=== PATIENT | female | born 1960 | race Caucasian/White ===

== ENCOUNTER → 2020-04-04 | Outpatient (CLI) | payer BC ==
[~2020-04-04] MED LIST: ASPI81TA26 PO; CHLO50TA PO; HYDR12.55 PO; LISI-538 PO; METF500T13 PO; METO1TAB33 PO; METO37.5 PO; NIAC1TAB5 PO; OMEP40CA97 PO; PARO20TA3 PO; SIMV20TA22 PO; TELM1TAB35 PO
[2020-04-04 09:51] LABS: HEMOGLOBIN 12.4 g/dl (12.0-15.5); MEAN CORPUSCULAR HGB CONC 31.8 g/dl (32.0-36.5); MEAN CORPUSCULAR VOLUME 94.2 fl (80.0-96.0); PLATELET COUNT, AUTOMATED 286 10^3/uL (150-450); RED BLOOD COUNT 4.14 10^6/uL (4.00-5.40); WHITE BLOOD COUNT 5.7 10^3/uL (4.0-10.0)
[2020-04-04 10:01] LABS: INR 0.98; PROTHROMBIN TIME 13.2 SECONDS (12.5-14.3)
[2020-04-04 10:12] LABS: ERYTHROCYTE SEDIMENTATION RATE 37 mm/hr (0-30)
[2020-04-04 10:14] LABS: ALBUMIN 3.7 GM/DL (3.2-5.2); ALT/SGPT 32 U/L (12-78); BILIRUBIN,TOTAL 0.3 MG/DL (0.2-1.0); BLOOD UREA NITROGEN 28 MG/DL (7-18); CALCIUM LEVEL 9.2 MG/DL (8.5-10.1); CARBON DIOXIDE LEVEL 27 MEQ/L (21-32); CHLORIDE LEVEL 101 MEQ/L (98-107); GLOMERULAR FILTRATION RATE > 60.0 (>51); GLUCOSE, FASTING 146 MG/DL (70-100); POTASSIUM SERUM 4.6 MEQ/L (3.5-5.1); SODIUM LEVEL 138 MEQ/L (136-145); TOTAL PROTEIN 7.3 GM/DL (6.4-8.2)
--- NOTE | 2020-04-04 18:12 | ECGEPIP ---
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
== END ==
LOC: M LAB 08:47
PROVIDERS: ATTEND Orthopaedic Surgery
DX: M17.11 Unilateral primary osteoarthritis, right knee (principal)

== ENCOUNTER → 2020-04-04 | Outpatient (CLI) | payer BC ==
[~2020-04-04] MED LIST changes: -METO1TAB33 PO
== END ==
LOC: M LABSMTC 10:38
PROVIDERS: ATTEND Anesthesiology
DX: Z01.812 Encounter for preprocedural laboratory examination (principal); Z20.828 Contact with and (suspected) exposure to other viral communicable diseases

== ENCOUNTER 2020-04-09 11:21 | Inpatient (IN) | payer BC ==
--- NOTE | 2020-04-04 11:14 | HPE ---
HISTORY AND PHYSICAL DATE OF ADMISSION: 04/09/2020 ATTENDING PHYSICIAN: JOSEPH PIÑA MD CHIEF COMPLAINT: Right knee pain and stiffness. HISTORY: The patient is a 59-year-old female with progressively worsening right knee pain and stiffness. She has failed to improve with conservative measures. She continues to have symptoms with weightbearing activities and activities of daily living. She has consented for an elective right total knee arthroplasty with Dr. Piña for her continued symptoms. Medical optimization pending with her primary healthcare management, Dr. Yarbrough. CURRENT MEDICATIONS: 1. Metoprolol 50 mg daily. 2. Metformin 500 mg daily. 3. Chlorthalidone 25 mg daily. 4. Niacin 1000 mg twice daily. 5. Colesevelam 625 mg twice daily. 6. Zocor 40 mg daily. 7. Paxil 20 mg daily. 8. Metoprolol 50 mg twice daily. 9. Telmisartan 20 mg daily. 10.Lisinopril 20 mg daily. 11.Telmisartan 40 mg daily. 12.Omeprazole 40 mg daily. 13.Albuterol inhaler. ALLERGIES: There are no known drug allergies. CHRONIC MEDICAL CONDITIONS: 1. Diabetes. 2. Hypertension. 3. Hyperlipidemia. 4. Anxiety. 5. Depression. 6. Gastroesophageal reflux disease. 7. Asthma. PAST SURGICAL HISTORY: None. SOCIAL HISTORY: Patient has never used tobacco products and rarely uses alcohol. REVIEW OF SYSTEMS: The patient denies fevers, chills, nausea, vomiting or diarrhea. Denies chest pain, shortness of breath, lightheadedness, dizziness or headaches. Denies any recent upper respiratory or urinary tract infection symptoms. She does continue to have right knee pain with weightbearing activities and activities of daily living. PHYSICAL EXAMINATION: GENERAL: Well-nourished, well-developed female in no apparent distress. She is alert, oriented and cooperative. Mood and affect are appropriate. VITAL SIGNS: Height is 66 inches, weight is 274 pounds, temperature is 97.3, blood pressure 180/90. Heart rate 78, respirations 20. NECK: Supple without lymphadenopathy. HEART: Regular rate and rhythm. LUNGS: Clear to auscultation bilaterally. ABDOMEN: Soft and nontender. Bowel sounds are present. MUSCULOSKELETAL: Right knee exhibits no gross abnormalities. There is tenderness to palpation along the medial and lateral and joint lines. Patient can extend the knee to about 2 degrees and flex to 95 degrees. Right lower extremity strength is 5/5. The calf is soft and nontender without evidence of DVT. She is neurovascularly intact distally. IMAGING: Right knee x-rays are notable for endstage degenerative changes. IMPRESSION: Right knee osteoarthritis. PLAN: Patient has consented for an elective right total knee arthroplasty with Dr. Piña for her continued symptoms. Medical optimization pending with Dr. Yarbrough. The patient is scheduled for her COVID test tomorrow. She will be NPO after midnight the night prior to surgery and was instructed to take a medication with a small sip of water by her primary healthcare management. She will follow her primary healthcare management's recommendations on how to take daily medications to include any anticoagulants if applicable. The patient will use her Hibiclens and Bactroban as directed.
[~2020-04-09] VITALS: Ht 170.2 cm; Wt 124.7 kg
[~2020-04-09 11:21] MED LIST changes: +BUPIVACAINE HCL 0.25% 10ML VIAL As Ordered ONE; +BUPIVACAINE LIPOSOME/PF 1.3% 20ML VIAL (13.3MG/ML)(EXPAREL)(C9290 PER1MG) As Ordered ONE; +EPINEPHrine INJ 1 MG/ML 1ML AMP As Ordered ONE; +LIDOCAINE 1% MDV 20ML VIAL SQ PRN; +LR 1,000 ML IV ONE; +TRANEXAMIC ACID 100 MG/ML 10ML VIAL As Ordered ONE; +ceFAZolin 1GM VIAL (J0690 PER 500MG) As Ordered ONE; +ceFAZolin SOD 1 GM in D5W MINI-BAG PLUS 50 ML IV ONE; +ceFAZolin SOD 2 GM in IV 1 EA IV ONE
[2020-04-09] MEDS ORDERED: METO1TAB33 PO (12:07)
[2020-04-09] MEDS ORDERED: fentaNYL 100 MCG/2 ML INJECTION (J3010) As Ordered ONE ×2 (12:45→14:00)
[2020-04-09] MEDS ORDERED: MIDAZOLAM INJ 2MG/2ML VIAL (J2250 PER 1MG) As Ordered ONE ×2 (12:45→14:00)
[2020-04-09] MEDS ORDERED: ROPIvacaine 0.5% 30ML INJECTION (J2795 PER 1MG) As Ordered ONE (12:59)
[2020-04-09] MEDS ORDERED: dexameTHASONE 10MG/1ML VIAL PRES.FREE (J1100 PER 1MG) As Ordered ONE (12:59)
[2020-04-09] MEDS ORDERED: dexameTHASONE 10MG/1ML VIAL PRES.FREE (J1100 PER 1MG) XX ONE (13:30)
[2020-04-09] MEDS ORDERED: ROPIvacaine 0.5% 30ML INJECTION (J2795 PER 1MG) XX ONE (13:30)
[2020-04-09] MEDS ORDERED: LIDOCAINE 1% MDV 20ML VIAL XX ONE (13:30)
--- NOTE | 2020-04-09 13:30 | IPN ---
PROGRESS NOTE DATE: 04/09/2020 SUBJECTIVE: The patient was seen and examined. She wished to go ahead with a right knee arthroplasty. She understands the nature of this, the risks of bleeding, infection, damage to nerves or vessels, persistent pain, wear, loosening, blood clots, medical problems, and among others. She understands she is at increased risk of complications due to her morbid obesity but she has been unable to lose any further weight.
[2020-04-09] MEDS: fentaNYL 100 MCG/2 ML INJECTION (J3010) IV PRN ×2 (13:37→13:45)
[2020-04-09] MEDS: MIDAZOLAM INJ 2MG/2ML VIAL (J2250 PER 1MG) IV PRN ×2 (13:37→13:45)
[2020-04-09] MEDS ORDERED: propofoL 500 MG/50 ML VIAL As Ordered ONE (14:00)
[2020-04-09] MEDS ORDERED: PHENYLephrine HCL 500 MCG/5 ML (100MCG/ML) SYRINGE (J2370) As Ordered ONE (14:29)
[2020-04-09] MEDS ORDERED: propofoL 200 MG/20 ML VIAL As Ordered ONE (14:37)
[2020-04-09] MEDS ORDERED: fentaNYL 100 MCG/2 ML INJECTION (J3010) IV PRN (15:45)
[2020-04-09] MEDS ORDERED: LR 1,000 ML IV SCH (15:45)
[2020-04-09] MEDS ORDERED: ONDANSETRON 4MG/2ML VIAL IV PRN ×2 (15:45)
[2020-04-09] MEDS ORDERED: MORPHINE 4 MG/ML 1ML VIAL/SYRINGE (J2270) IV PRN (15:45)
[2020-04-09] MEDS ORDERED: oxyCODONE 5MG TAB PO PRN (15:45)
[2020-04-09] MEDS ORDERED: MORPHINE 2 MG/ML 1ML VIAL (J2270) IV PRN (15:45)
[2020-04-09] MEDS ORDERED: ACETAMINOPHEN TAB 650MG DOSE (2X325MG) PO PRN (15:45)
[2020-04-09] MEDS ORDERED: PERCOCET 5MG/325MG TAB PO PRN (15:45)
--- NOTE | 2020-04-09 16:31 | REP ---
INDICATION: POST TOTAL KNEE COMPARISON: None. TECHNIQUE: AP and cross-table lateral views. FINDINGS: Normal appearance and positioning to the femoral and tibial components. Overlying postsurgical changes and skin jaylin noted. IMPRESSION: Status post right knee replacement. Satisfactory positioning. <Electronically signed by Josh Plasencia > 04/09/20 [id number]
--- NOTE | 2020-04-09 16:39 | RO ---
OPERATIVE NOTE DATE OF OPERATION: 04/09/2020 PREOPERATIVE DIAGNOSIS: Right knee osteoarthritis. POSTOPERATIVE DIAGNOSIS: Right knee osteoarthritis. PROCEDURE: Right total knee arthroplasty using an Attune rotating platform size 6, posterior stabilized femur, size 5 tibial tray 6 polyethylene, 35 patellar button. SURGEON: Tre Piña MD K 9 HANDLER/ DEPUTY: CAIN Holden ANESTHESIA: Spinal. EBL: 50. COMPLICATIONS: None. OPERATIVE PROCEDURE: The patient was taken to the operating room, placed in the supine position. After spinal anesthesia was induced, the right lower extremity was prepped and draped in the usual sterile fashion. A time-out was performed, tourniquet was inflated and a longitudinal incision was made over the anterior aspect of the knee. Sharp dissection was carried down through subcutaneous tissue until the deep layer was encountered. A medial parapatellar arthrotomy was performed, everted the patella with some difficulty due to large osteophytes. There was also a large loose body in the pouch that was removed. Once I removed the osteophytes, I was able to michele the patella, flex the knee up, removed osteophytes from around the femur, used the intermedullary guide on the femoral side set at 5 degrees of valgus and a 9 mm cut. This was pinned in place and a distal femoral cut was made protecting soft tissues. I sized the femur to a 6 with the sizing guide and the drill holes were placed in the end of the femur with the external rotation dialed in. I then placed the 6 cutting block on and made the remaining four cuts, protecting soft tissues. We then directed our attention to the tibia. Tibial alignment guide was placed and it was set at 4 mm off the low side which was medial and the proximal tibia cut was made removing the excess bone. It was evident at this point that the PCL was deficient so I went ahead with a box cut on the end of the femur for a posterior stabilized prosthesis. This excess bone was removed along with the PCL with a cautery. The tibial surface was then prepared. A size 5 tray fit nicely. This was drilled and broached and the trial components were placed. I had used a diesel dinkey engineer to remove soft tissue and osteophytes from either side of the knee and I had used spacer blocks to determine the appropriate thickness of polyethylene. The overall alignment and tissue balance was excellent. Once the trial components were placed, they fit very nicely and a size 6 polyethylene was appropriate, had excellent stability in flexion and extension, varus/valgus stress. I then free-hand cut the patella, removing about 7 or 8 mm of bone and then sized it to be a 35 button which was drilled, and the button racked quite nicely. I then drilled the holes in the end of the femur and the carpenter assistant installer prepared the bone cement in the modern technique. I then removed the trial component. I injected the Exparel in the deep tissues withdrawing on the syringe first and irrigating the surfaces well. The cement was prepared. I then cemented in the components, removed excess bone cement. I cemented in the patella, held it in place with a clamp. The TXA was placed in the deep wound. I then repaired the deep layer with interrupted #1 Vicryl suture and a running STRATAFIX and then removed the patellar clamp once the cement had hardened. I then closed the remaining deep layer with a running STRATAFIX irrigating first. I then closed the subcu with 2-0 Vicryl and the skin with jaylin. A sterile dressing was applied. The tourniquet was deflated when the cement was hard and she was taken to the recovery room in stable condition. There were no known complications. The plan will be routine postop. The carpenter assistant installer was instrumental in holding retractors and assisting in wound closure and assisting in mixing the bone cement. This was coded as an unusually difficult procedure due to the patient's BMI of 44 which was significantly more challenging in positioning the leg and soft tissue balance and making the cuts. This added time and significant difficulty to the procedure, and she is aware that it increased the complication rate. [place]
[2020-04-09] MEDS ORDERED: GLUCOSE 4GM CHEW TABLET PO PRN (17:15)
[2020-04-09] MEDS ORDERED: DEXTROSE 50% 50 ML SYRINGE IV PRN (17:15)
[2020-04-09] MEDS ORDERED: GLUCAGON INJ 1MG VIAL SC PRN (17:15)
--- NOTE | 2020-04-09 17:18 | HPEPDOC ---
General Date of Admission Apr 09, 2020 at 11:37 Date of Service: Apr 09, 2020 Chief Complaint The patient is a 59-year-old female admitted with a reason for visit of Osteoarthritis Right Knee. Source: Patient History of Present Illness Consultation Report Consultation requested by Orthopedics. Consultation for the management of Medical Comorbidities. HPI: 59 year old female with PMH of HTn, DM, HLD, OA, GERD has been admitted to the orthopedic service for elective right total knee replacement for advanced OA not management by medications. She had an uneventful surgery. She is seen post op and is complaining of right knee pain about 4/10 in intensity sharp stabbing pain with no radiation. Says the numbness is wearing off and the pain has started. Home Medications Scheduled Chlorthalidone (Chlorthalidone) 50 Mg Tablet, 50 MG PO DAILY, (Reported) Lisinopril (Lisinopril) 20 Mg Tablet, 20 MG PO DAILY, (Reported) Metformin HCl (Metformin HCl) 500 Mg Tab, 500 MG PO BID, (Reported) Metoprolol Succinate (Metoprolol Succinate) 100 Mg Tab.er.24h, 50 MG PO BID, (Reported) Niacin (Niacin ER) 1,000 Mg Tab, 1,000 MG PO QHS, (Reported) Omeprazole (Omeprazole) 40 Mg Capsule.dr, 40 MG PO DAILY, (Reported) Paroxetine HCl (Paroxetine HCl) 20 Mg Tab, 20 MG PO DAILY, (Reported) Simvastatin (Simvastatin) 20 Mg Tab, 40 MG PO DAILY, (Reported) Telmisartan (Telmisartan) 40 Mg Tab, 60 MG PO DAILY, (Reported) Allergies Coded Allergies: No Known Allergies (Unverified , 04/09/20) Past Medical History Medical History Diabetes. Hypertension. Hyperlipidemia. Anxiety. Depression. Gastroesophageal reflux disease. Bronchitis Morbid obesity OA Surgical History C- section x 1 Family History Significant Family History: Cancer (Father from throat cancer), Diabetes (mother), Hypertension (mother) Social History * Smoker: non-smoker Alcohol: rarely Drugs: denies A-FIB/CHADSVASC A-FIB History Current/History of A-Fib/PAF?: No Review of Systems Constitutional: Denies: Chills, Fever, Night Sweats Eyes: Denies: Pain, Vision change ENT: Denies: Head Aches, Ear Pain, Dysphagia Skin: Denies: Rash, Lesions, Breakdown Pulmonary: Denies: Dyspnea, Cough Cardiovascular: Denies: Chest Pain, Palpitations, Orthopnea, Paroxysmal Noc. Dyspnea, Lt Headedness Gastrointestinal: Denies: Nausea, Vomiting, Abdominal Pain, Diarrhea Genitourinary: Denies: Dysuria, Frequency, Incontinence, Retention Musculoskeletal: Reports: Joint Pain Neurological: Denies: Weakness, Numbness, Change in speech, Confusion Physical Examination General Exam: Positive: Alert, Cooperative, No Acute Distress Eye Exam: Positive: PERRLA, Conjunctiva & lids normal, EOMI; Negative: Sclera icteric ENT Exam: Positive: Atraumatic, Mucous membr. moist/pink, Pharynx Normal Neck Exam: Positive: Supple; Negative: JVD, thyromegaly Chest Exam: Positive: Clear to auscultation, Normal air movement Heart Exam: Positive: Rate Normal, Regular Rhythm, Normal S1, Normal S2; Negative: Murmurs, Rubs Abdomen Exam: Positive: Normal bowel sounds, Soft; Negative: Tenderness, Hepatospenomegaly Extremity Exam: Positive: Normal pulses; Negative: Clubbing, Cyanosis, Edema Vital Signs Vital Signs Date Time Temp Pulse Resp B/P (MAP) Pulse Ox O2 Delivery O2 Flow Rate FiO2 04/09/20 17:05 70 16 132/67 (88) 99 Room Air 04/09/20 17:00 97.5 04/09/20 13:48 3 Laboratory Data Labs 24H Laboratory Tests 2 04/09/20 12:31: Bedside Glucose (Misc Panel) 130H Assessment/Plan 59 year old female with PMH of HTn, DM, HLD, OA, GERD has been admitted to [facility] orthopedic service for elective right total knee replacement for advanced OA not management by medications. Hospitalist is consulted for medical management. Right total knee replacement pain control and dvt prophylaxis as per orthopedics. Hypertension continue metoprolol will hold Lisinpril and telmeasrtan will give amlodipine if needed DM Hold metformin Lispro as per sliding scale HLD niacin and simvastatin Anxiety/depression paroxetine GERD omeprazole Asthma Plan / VTE VTE Prophylaxis Ordered?: Yes TIM DUNN MD Apr 09, 2020 17:18
[2020-04-09 18:00] VITALS: BP 160/88
[2020-04-09 18:30] VITALS: BP 134/73
[2020-04-09] MEDS: LR 1,000 ML IV SCH (19:06)
[2020-04-09] MEDS: HumaLOG INSULIN (NovoLOG) PER UNIT SC SCH (19:08)
[2020-04-09 19:30] VITALS: BP 139/73
[2020-04-09] MEDS: amLODIPine 5 MG TAB PO SCH (20:01)
[2020-04-09 20:30] VITALS: BP 124/61
[2020-04-09] MEDS ORDERED: NIACIN SR (NIASPAN) 500 MG TAB PO SCH (21:00)
[2020-04-09] MEDS ORDERED: SIMVASTATIN 20 MG TAB PO SCH (21:00)
[2020-04-09] MEDS ORDERED: HumaLOG INSULIN (NovoLOG) PER UNIT SC SCH (21:00)
[2020-04-09 21:30] VITALS: BP 136/71
[2020-04-09] MEDS: ceFAZolin SOD 2 GM in IV 1 EA IV SCH (22:20)
[2020-04-09] MEDS: ceFAZolin SOD 1 GM in D5W MINI-BAG PLUS 50 ML IV SCH (22:20)
[2020-04-10 02:00] VITALS: BP 126/81
[2020-04-10 06:00] VITALS: BP 138/76
[2020-04-10] MEDS ORDERED: PERCOCET 5MG/325MG TAB PO PRN (06:00)
[2020-04-10] MEDS: LR 1,000 ML IV SCH (06:03)
[2020-04-10] MEDS: ceFAZolin SOD 1 GM in D5W MINI-BAG PLUS 50 ML IV SCH (06:20)
[2020-04-10] MEDS: ceFAZolin SOD 2 GM in IV 1 EA IV SCH (06:20)
[2020-04-10] MEDS ORDERED: XARE10TA PO (06:41)
[2020-04-10] MEDS ORDERED: PERC5TAB12 PO (06:41)
[2020-04-10 07:41] VITALS: BP 128/74
[2020-04-10] MEDS: amLODIPine 5 MG TAB PO SCH (07:41)
[2020-04-10] MEDS: HumaLOG INSULIN (NovoLOG) PER UNIT SC SCH (07:41)
--- NOTE | 2020-04-10 08:03 | IPNPDOC ---
Date Seen The patient was seen on 04/10/20. Progress Note SUBJECTIVE: just received percocet this morning. no pain while resting and not moving her right knee. able to sleep ok last night. no c/o sob, cough, fever, or chills. received miralax for bowel regimen. no other c/o. using her incentive spirometry . OBJECTIVE PHYSICAL EXAMINATION: VITAL SIGNS: Please see below. GENERAL: cooperative. pleasant no distress HEENT: moist mm no jvd no carotid bruits CARDIOVASCULAR: S1S2 RRR RESPIRATORY: AEBE CTAB ABDOMINAL: obese soft nt nd +BS x 4 quadrants EXTREMITIES: right knee postop . warm dry well perfused no edema. limited ROM right Leg postop . LABORATORY DATA, IMAGING STUDIES, MICROBIOLOGY: Please see below. 59 year old female with PMH of HTn, DM, HLD, OA, GERD has been admitted to [facility] orthopedic service for elective right total knee replacement for advanced OA not management by medications. Hospitalist is consulted for medical management. Right total knee replacement ARU screen postop mgt including pain meds, DVT prophylaxis, surgical wound mgt per ortho activity as tolerated Hypertension controlled on metoprolol no c/o h/a, chest pain, changees in vision DM on consistent carbs diet fingersticks qac hs with coverage Lispro as per sliding scale HLD on niacin and simvastatin Anxiety/depression paroxetine GERD omeprazole Asthma no nocturnal symptoms disposition: await PT/OT recommendations, ARU screen possible dc today or in AM if tolerates ambulation. VS, I&O, 24H, Fishbone Vital Signs/I&O Vital Signs Date Time Temp Pulse Resp B/P (MAP) Pulse Ox O2 Delivery O2 Flow Rate FiO2 04/10/20 06:49 18 Room Air 04/10/20 06:00 98.0 86 138/76 (96) 99 04/09/20 13:48 3 I&O- Last 24 Hours up to 6 AM 04/10/20 06:00 Intake Total 3075 ml Output Total 650 ml Balance 2425 ml Laboratory Data 24H LABS Laboratory Tests 2 04/09/20 12:31: Bedside Glucose (Misc Panel) 130H 04/09/20 18:54: Bedside Glucose (Misc Panel) 150H 04/09/20 20:00: Bedside Glucose (Misc Panel) 208H 04/10/20 05:41: Bedside Glucose (Misc Panel) 158H YANETH YARBROUGH MD Apr 10, 2020 07:24
[2020-04-10] MEDS ORDERED: MIRALAX *UNIT DOSE* 17GM PACKET PO SCH (09:00)
[2020-04-10] MEDS ORDERED: OMEPRAZOLE 20 MG CAP PO SCH (09:00)
[2020-04-10] MEDS ORDERED: PARoxetine 20MG TABLET PO SCH (09:00)
[2020-04-10] MEDS ORDERED: MOM 30ML SUSPENSION UDC PO SCH (09:00)
[2020-04-10 10:00] VITALS: BP 156/79
--- NOTE | 2020-04-10 17:05 | DS.PDOC ---
Discharge Summary General Date of Admission Apr 09, 2020 at 11:37 Date of Discharge 04/10/20 Discharge Summary DISCHARGE DIAGNOSES: Right Knee OA s/p right total knee replacement HTN DM2 Hyperlipidemia OA GERD DISCHARGE MEDICATIONS: SEE BELOW DISCHARGE INSTRUCTIONS: ORTHO FOR POSTOPERATIVE MANAGEMENT INCLUDING ACTIVITY, POSTOP DRESSING CHANGES, DVT PROPHYLAXIS, BOWEL REGIMEN, AND PAIN CONTROL HISTORY OF PRESENTING ILLNESS: 59 year old female with PMH of HTn, DM, HLD, OA, GERD has been admitted to [facility] orthopedic service for elective right total knee replacement for advanced OA not management by medications. Hospitalist is consulted for medical management. HOSPITAL COURSE: Right total knee replacement ARU screen postop mgt including pain meds, DVT prophylaxis, surgical wound mgt per ortho activity as tolerated Hypertension controlled on metoprolol no c/o h/a, chest pain, changees in vision DM on consistent carbs diet fingersticks qac hs with coverage Lispro as per sliding scale HLD on niacin and simvastatin Anxiety/depression paroxetine GERD omeprazole Asthma no nocturnal symptoms DISCHARGE PHYSICAL EXAMINATION: VITAL SIGNS: Please see below. GENERAL: cooperative. pleasant no distress HEENT: moist mm no jvd no carotid bruits CARDIOVASCULAR: S1S2 RRR RESPIRATORY: AEBE CTAB ABDOMINAL: obese soft nt nd +BS x 4 quadrants EXTREMITIES: right knee postop . warm dry well perfused no edema. limited ROM right Leg postop . LABORATORY DATA, IMAGING STUDIES, MICROBIOLOGY: PLS SEE BELOW KNEE XRAY: INDICATION: POST TOTAL KNEE COMPARISON: None. TECHNIQUE: AP and cross-table lateral views. FINDINGS: Normal appearance and positioning to the femoral and tibial components. Ov erlying postsurgical changes and skin jaylin noted. IMPRESSION: Status post right knee replacement. Satisfactory positioning. <Electronically signed by Josh Plasencia > 04/09/20 6043 TIME SPENT ON DISCHARGE: 30 MINUTES Vital Signs/I&Os Vital Signs Date Time Temp Pulse Resp B/P (MAP) Pulse Ox O2 Delivery O2 Flow Rate FiO2 04/10/20 10:00 98.6 91 18 156/79 (104) 98 Room Air 04/09/20 13:48 3 I&O- Last 24 Hours up to 6 AM 04/10/20 06:00 Intake Total 3075 ml Output Total 650 ml Balance 2425 ml Laboratory Data Labs 24H Laboratory Tests 2 04/09/20 18:54: Bedside Glucose (Misc Panel) 150H 04/09/20 20:00: Bedside Glucose (Misc Panel) 208H 04/10/20 05:41: Bedside Glucose (Misc Panel) 158H FSBS Laboratory Tests Test 04/09/20 18:54 04/09/20 20:00 04/10/20 05:41 Range/Units Bedside Glucose (Misc Panel) 150 208 158 70-105 MG/DL Discharge Medications Scheduled Chlorthalidone (Chlorthalidone) 50 Mg Tablet, 50 MG PO DAILY, (Reported) Lisinopril (Lisinopril) 20 Mg Tablet, 20 MG PO DAILY, (Reported) Metformin HCl (Metformin HCl) 500 Mg Tab, 500 MG PO BID, (Reported) Metoprolol Succinate (Metoprolol Succinate) 100 Mg Tab.er.24h, 50 MG PO BID, (Reported) Niacin (Niacin ER) 1,000 Mg Tab, 1,000 MG PO QHS, (Reported) Omeprazole (Omeprazole) 40 Mg Capsule.dr, 40 MG PO DAILY, (Reported) Paroxetine HCl (Paroxetine HCl) 20 Mg Tab, 20 MG PO DAILY, (Reported) Rivaroxaban (Xarelto) 10 Mg Tablet, 10 MG PO DAILY Simvastatin (Simvastatin) 20 Mg Tab, 40 MG PO DAILY, (Reported) Telmisartan (Telmisartan) 40 Mg Tab, 60 MG PO DAILY, (Reported) Scheduled PRN Oxycodone HCl/Acetaminophen (Percocet 5-325 mg Tablet) 1 Each Tablet, 1-2 TAB PO Q4H PRN for PAIN Allergies Coded Allergies: No Known Allergies (Unverified , 04/09/20) YANETH YARBROUGH MD Apr 10, 2020 17:04
[2020-04-10] MEDS ORDERED: RIVAROXABAN 10 MG TAB (XARELTO) PO SCH (18:00)
== END 2020-04-10 12:45 | disposition home or self-care (01) | DRG 302 ==
LOC: M OR 11:37 → M MS5PR 17:45
PROVIDERS: ADMIT Orthopaedic Surgery; ATTEND Orthopaedic Surgery
PROC: 0SRC0J9 Replacement of Right Knee Joint with Synthetic Substitute, Cemented, Open Approach (ICD-10-PCS; principal; 2020-04-09 16:00)
DX: M17.11 Unilateral primary osteoarthritis, right knee (principal); E66.01 Morbid (severe) obesity due to excess calories; I10 Essential (primary) hypertension; E11.9 Type 2 diabetes mellitus without complications; K21.9 Gastro-esophageal reflux disease without esophagitis; Z79.899 Other long term (current) drug therapy; E78.5 Hyperlipidemia, unspecified; F41.9 Anxiety disorder, unspecified; F32.9 Major depressive disorder, single episode, unspecified; J45.909 Unspecified asthma, uncomplicated